=== PATIENT | male | born 1995 | race Caucasian/White ===

== ENCOUNTER → 2020-12-20 14:36 | Outpatient (CLI) | payer OTHER, SELFPAY ==
--- NOTE | 2020-12-20 14:42 | XR_ITS ---
PROCEDURE INFORMATION: Exam: XR Abdomen Exam date and time: 12/20/2020 2:42 PM Age: 25 years old Clinical indication: Abdominal pain; Generalized; Patient HX: HX of kidney stone. TECHNIQUE: Imaging protocol: XR of the abdomen. Views: Frontal supine view of the abdomen. 1 View. COMPARISON: No relevant prior studies available. FINDINGS: Gastrointestinal tract: Normal. No bowel dilation. Organs: Possible very small, punctate left lower pole calculus, correlate with prior examinations. Bones/joints: No acute findings. IMPRESSION: No acute findings.
== END ==
PROVIDERS: Visit Provider Urology
DX: N20.0 Calculus of kidney (principal)
CPT/HCPCS: 74018